=== PATIENT | male | born 1990 | race Caucasian/White ===

== ENCOUNTER 2018-05-09 03:11 | Emergency (ER) | payer BC ==
[2018-05-09 03:33] VITALS: BP 124/86; PULSE 86; TEMP 99.1; BMI 25.7
--- NOTE | 2018-05-09 03:41 | PDOC ---
History of Present Illness - General Chief Complaint: Injury Stated Complaint: FALL Time Seen by Provider: 05/09/18 03:18 History Source: Patient Exam Limitations: No Limitations - History of Present Illness Initial Comments: 05/09/18 03:48 28-year-old male with no medical history presents to the ER complaining of a frontal forehead/scalp laceration status post tripped and fell forward, striking his forehead against the wall. Patient states he had 2 beers this evening but denies dizziness, lightheadedness. Patient states he's wearing oversized flip-flops which caused him to trip and fall forward. Patient denies LOC, fever/chills, facial pains, neck pain/stiffness, back pains, chest pain, shortness of breath, abdominal pains, flank pains, urinary symptoms, bladder or bowel dysfunction, extremity numbness or tingling sensation. Bleeding controlled with direct pressure prior to his arrival. Patient states he feels fine. Procedure: 2.5 cm vertical midline laceration to scalp/into 2 mm frontal forehead Betadine prep 1% lidocaine 2 mL Normal saline copious irrigation Betadine reprep Aseptic drape (4) 5-0 Prolene simple interrupted bacitracin Past History - Past Medical History Allergies/Adverse Reactions: Allergies Allergy/AdvReac Type Severity Reaction Status Date / Time No Known Allergies Allergy Verified 10/28/12 20:14 Home Medications: Ambulatory Orders NK [No Known Home Medication] 05/09/18 COPD: No - Immunization History Td Vaccination: No TDAP Vaccination: No Immunization Up to Date: Yes - Suicide/Smoking/Psychosocial Hx Smoking Status: No Smoking History: Unknown if ever smoked Have you smoked in the past 12 months: No Number of Cigarettes Smoked Daily: 0 Information on smoking cessation initiated: No Hx Alcohol Use: Yes Drug/Substance Use Hx: No Review of Systems - Review of Systems Able to Perform ROS?: Yes Comments:: 05/09/18 03:46 CONSTITUTIONAL: Absent: fever, chills, diaphoresis, generalized weakness, malaise, loss of appetite HEENT: Absent: rhinorrhea, nasal congestion, throat pain, throat swelling, difficulty swallowing, mouth swelling, ear pain, eye pain, visual Changes CARDIOVASCULAR: Absent: chest pain, loss of consciousness, palpitations, irregular heart rate, peripheral edema RESPIRATORY: Absent: cough, shortness of breath, dyspnea with exertion, orthopnea, wheezing, stridor, hemoptysis GASTROINTESTINAL: Absent: abdominal pain, abdominal distension, nausea, vomiting, diarrhea, constipation, melena, hematochezia GENITOURINARY: Absent: dysuria, frequency, urgency, hesitancy, hematuria, flank pain, genital pain MUSCULOSKELETAL: Absent: myalgia, arthralgia, joint swelling SKIN: Absent: rash, itching, pallor HEMATOLOGIC/IMMUNOLOGIC: Absent: easy bleeding, easy bruising, lymphadenopathy, frequent infections ENDOCRINE: Absent: unexplained weight gain, unexplained weight loss, heat intolerance, cold intolerance NEUROLOGIC: Absent: headache, focal weakness or paresthesias, dizziness, unsteady gait, seizure, mental status changes, bladder or bowel incontinence PSYCHIATRIC: Absent: anxiety, depression, suicidal or homicidal ideation, hallucinations. Is the patient limited Romanian proficient: No *Physical Exam - Vital Signs Last Vital Signs Temp Pulse Resp BP Pulse Ox 99.1 F 86 17 124/86 99 05/09/18 03:30 05/09/18 03:30 05/09/18 03:30 05/09/18 03:30 05/09/18 03:30 05/09/18 03:46 GENERAL: Well developed, well nourished. Awake and alert. No acute distress. HEENT: Normocephalic, atraumatic. PERRLA, EOMI. No conjunctival pallor. Sclera are non- icteric. Moist mucous membranes. Oropharynx is clear. NECK: Supple. Full ROM. No JVD. Carotid pulses 2+ and symmetric, without bruits. No thyromegaly. No lymphadenopathy. CARDIOVASCULAR: Regular rate and rhythm. No murmurs, rubs, or gallops. Distal pulses are 2+ and symmetric. PULMONARY: No evidence of respiratory distress. Lungs clear to auscultation bilaterally. No wheezing, rales or rhonchi. ABDOMINAL: Soft. Non-tender. Non-distended. No rebound or guarding. No organomegaly. Normoactive bowel sounds. MUSCULOSKELETAL Normal range of motion at all joints. No bony deformities or tenderness. No CVA tenderness. EXTREMITIES: No cyanosis. No clubbing. No edema. No calf tenderness. SKIN: Warm and dry. Normal capillary refill. No rashes. No jaundice. NEUROLOGICAL: 2.5 cm verti mid frontal forehead /2mm pass scalp line partieal thickness laceration Alert, awake, appropriate. Cranial nerves 2-12 intact. No deficits to light touch and temperature in face, upper extremities and lower extremities. No motor deficits in the in face, upper extremities and lower extremities. Normoreflexic in the upper and lower extremities. Normal speech. Toes are down- going bilaterally. Gait is normal without ataxia. PSYCHIATRIC: Cooperative. Good eye contact. Appropriate mood and affect. ED Treatment Course - RADIOLOGY Radiograph Interpretation: 05/09/18 03:48 CT head/c spine w/o contrast: neg wnl *DC/Admit/Observation/Transfer Diagnosis at time of Disposition: Closed head injury Qualifiers: Encounter type: initial encounter Qualified Code(s): S09.90XA - Unspecified injury of head, initial encounter Laceration of scalp Qualifiers: Encounter type: initial encounter Qualified Code(s): S01.01XA - Laceration without foreign body of scalp, initial encounter - Discharge Dispostion Condition at time of disposition: Stable Decision to Admit order: No - Referrals Referrals: Homer Jarvis MD [Primary Care Provider] - - Patient Instructions Printed Discharge Instructions: DI for Laceration Repair of the Scalp, DI for Closed Head Injury Additional Instructions: Keep the incision clean and dry for 24 hours. After 24 hours, you may allow the soap and water to rinse off your incision. Avoid direct pressure of the water to the incision. Pat the incision dry with a clean clothe. Apply a small amount of bacitracin onto the incision. Cover the incision loosely with a bandaid. Take tylenol/motrin as needed for pain. Follow up with your physician or the ER in 48 hours for a wound check. Return to the ER if you notice red streaks, increase redness/swelling/severe pain to the incision. Suture removal in 9 days. - Post Discharge Activity
== END 2018-05-09 05:04 | disposition home or self-care (01) ==
LOC: JER 03:11
PROC: 0HQ0XZZ Repair Scalp Skin, External Approach (ICD-10-PCS; principal; 2018-05-09)
DX: S01.01XA Laceration without foreign body of scalp, initial encounter (principal); W01.198A Fall on same level from slipping, tripping and stumbling with subsequent striking against other object, initial encounter; Y93.89 Activity, other specified; Y92.89 Other specified places as the place of occurrence of the external cause; Y99.8 Other external cause status
CPT/HCPCS: 70450-TC; 72125-TC; 99283-25

== ENCOUNTER 2020-05-14 08:26 | Emergency (ER) | payer OTHER ==
[2020-05-14 08:39] VITALS: BP 141/88; PULSE 79; BMI 26.6
[2020-05-14 08:40] VITALS: TEMP 97.9
[2020-05-14] MEDS ORDERED: MAG HYDROX/AL HYDROX/SIMETH 30 ML UNIT-DOSE CUP PO ONE (08:51)
[2020-05-14] MEDS ORDERED: MAG HYDROX/AL HYDROX/SIMETH 30 ML UNIT-DOSE CUP ONE (09:24)
[2020-05-14 10:06] LABS: BASO % 0.4 % (0-2.0); EOS % 1.9 % (0-4.5); HEMATOCRIT 47.1 % (35.4-49); HEMOGLOBIN 15.9 GM/dL (11.7-16.9); LYMPH % 25.7 % (8-40); MCH 28.7 pg (25.7-33.7); MCHC 33.8 g/dl (32.0-35.9); MEAN PLT VOLUME 8.5 fl (7.5-11.1); MONO % 7.1 % (3.8-10.2); NEUT % 64.9 % (42.8-82.8); PLATELET COUNT 186 K/MM3 (134-434); RBC 5.55 M/mm3 (4.00-5.60); RDW 12.4 % (11.9-15.9); WHITE BLOOD COUNT 4.4 K/mm3 (4.0-10.0)
[2020-05-14 10:36] LABS: CHLORIDE 104 mmol/L (98-107); POTASSIUM 3.8 mmol/L (3.5-5.1); SODIUM 139 mmol/L (136-145)
[2020-05-14 10:39] LABS: ANION GAP 5 MMOL/L (8-16); BLOOD UREA NITROGEN 9.1 mg/dL (7-18); CO2 30 mmol/L (21-32); GLUCOSE,RANDOM 102 mg/dL (74-106)
[2020-05-14 10:42] LABS: CREATININE 0.9 mg/dL (0.55-1.3); SGOT/AST 16 U/L (15-37); SGPT/ALT 39 U/L (13-61)
[2020-05-14 10:44] LABS: BILIRUBIN,TOTAL 0.5 mg/dL (0.2-1)
[2020-05-14 10:45] LABS: ALK PHOS 84 U/L (45-117)
[2020-05-14] MEDS ORDERED: FAMOTIDINE 20 MG TABLET PO ONE (11:08)
[2020-05-14] MEDS ORDERED: FAMOTIDINE 20 MG TABLET ONE (11:12)
== END 2020-05-14 11:15 | disposition home or self-care (01) ==
LOC: JER 08:26
DX: R07.9 Chest pain, unspecified (principal)
CPT/HCPCS: 36415; 71046-TC-FY; 80053; 82550; 84484; 85025; 93005; 93010; 99285-25

== ENCOUNTER 2020-11-30 11:46 | Emergency (ER) | payer OTHER ==
[2020-11-30 12:32] VITALS: BP 125/85; PULSE 76; TEMP 98.6; BMI 24.2
[2020-11-30] MEDS ORDERED: LIDOCAINE 5% TOPICAL PATCH TP ONE (13:02)
[2020-11-30] MEDS ORDERED: METHOCARBAMOL 500 MG TABLET PO ONE (13:02)
[2020-11-30] MEDS ORDERED: KETOROLAC TROMETHAMINE 60 MG/2 ML VIAL IM ONE (13:02)
[2020-11-30] MEDS ORDERED: LIDOCAINE 5% TOPICAL PATCH ONE (13:08)
[2020-11-30] MEDS ORDERED: KETOROLAC TROMETHAMINE 30 MG/1 ML VIAL ONE (13:09)
[2020-11-30] MEDS ORDERED: METHOCARBAMOL 500 MG TABLET ONE (13:09)
== END 2020-11-30 13:18 | disposition home or self-care (01) ==
LOC: JERFT 11:46 → JER 11:46 → JERFT 13:18
PROC: 3E0233Z Introduction of Anti-inflammatory into Muscle, Percutaneous Approach (ICD-10-PCS; principal; 2020-11-30)
DX: M54.5 Low back pain (principal)
CPT/HCPCS: 99284-25

== ENCOUNTER 2021-03-13 22:16 | Emergency (ER) | payer OTHER ==
[2021-03-13 22:23] VITALS: BP 119/70; PULSE 112; TEMP 98.6; BMI 25.8
[2021-03-13] MEDS ORDERED: IBUPROFEN 600 MG TABLET (FP) PO ONE ×2 (22:38→22:39)
== END 2021-03-13 23:21 | disposition home or self-care (01) ==
LOC: JERFT 22:16 → JER 22:16 → JERFT 23:21
DX: S93.402A Sprain of unspecified ligament of left ankle, initial encounter (principal); W18.40XA Slipping, tripping and stumbling without falling, unspecified, initial encounter; X50.0XXA Overexertion from strenuous movement or load, initial encounter; Y93.64 Activity, baseball
CPT/HCPCS: 73610-TC-LT-FY; 73630-TC-LT; 99283-25

== ENCOUNTER 2022-02-27 13:19 | Emergency (ER) | payer OTHER ==
[2022-02-27 13:22] VITALS: BP 124/79; PULSE 77; RESP 18; TEMP 97.9; BMI 25.8
[2022-02-27 14:01] LABS: URINE APPEARANCE CLEAR; URINE BILIRUBIN NEGATIVE (NEGATIVE); URINE COLOR YELLOW; URINE GLUCOSE (UA) NEGATIVE (NEGATIVE); URINE KETONE NEGATIVE (NEGATIVE); URINE LEUK ESTERASE NEGATIVE (NEGATIVE); URINE NITRITE NEGATIVE (NEGATIVE); URINE PROTEIN NEGATIVE (NEGATIVE); URINE UROBILINOGEN 0.2 mg/dL (0.2-1.0)
== END 2022-02-27 17:47 | disposition home or self-care (01) ==
LOC: JERFT 13:19
DX: I86.1 Scrotal varices (principal)
CPT/HCPCS: 76870-TC; 81003; 87086; 99284-25

== ENCOUNTER 2022-06-09 01:41 | Emergency (ER) | payer OTHER ==
[2022-06-09 01:48] VITALS: BP 133/79; PULSE 104; RESP 20; TEMP 98.9; BMI 25.8
== END 2022-06-09 03:04 | disposition home or self-care (01) ==
LOC: JER 01:41
DX: S93.402A Sprain of unspecified ligament of left ankle, initial encounter (principal); S93.602A Unspecified sprain of left foot, initial encounter; W01.0XXA Fall on same level from slipping, tripping and stumbling without subsequent striking against object, initial encounter; X50.0XXA Overexertion from strenuous movement or load, initial encounter
CPT/HCPCS: 73610-TC-LT-FY; 73630-TC-LT; 99283-25

== ENCOUNTER 2022-11-26 19:10 | Emergency (ER) | payer OTHER ==
[2022-11-26 19:21] VITALS: BP 137/93; PULSE 76; RESP 18; TEMP 98.5; BMI 25.8
[2022-11-26] MEDS ORDERED: NAPROXEN 500 MG TABLET PO ONE (19:43)
[2022-11-26] MEDS ORDERED: NAPROXEN 500 MG TABLET ONE (19:43)
[2022-11-26 20:00] LABS: BASO % 0.5 % (0-2.0); HEMATOCRIT 45.5 % (35.4-49); LYMPH % 21.7 % (8-40); MCH 28.6 pg (25.7-33.7); MCHC 35.1 g/dl (32.0-35.9); MEAN CELL VOLUME 81.6 fl (80-96); MONO % 6.6 % (3.8-10.2); NEUT % 67.2 % (42.8-82.8); PLATELET COUNT 198 10^3/uL (134-434); RBC 5.58 M/mm3 (4.00-5.60); WHITE BLOOD COUNT 7.1 K/mm3 (4.0-10.0)
[2022-11-26 20:19] LABS: POTASSIUM 3.8 mmol/L (3.5-5.1)
[2022-11-26 20:21] LABS: ALBUMIN 4.1 g/dl (3.4-5.0); CALCIUM 8.7 mg/dL (8.5-10.1)
[2022-11-26 20:22] LABS: BLOOD UREA NITROGEN 13.6 mg/dL (7-18); MAGNESIUM 2.2 mg/dL (1.8-2.4)
[2022-11-26 20:24] LABS: CREATININE 0.9 mg/dL (0.55-1.3)
[2022-11-26 20:26] LABS: BILIRUBIN,TOTAL 0.5 mg/dL (0.2-1); TOT PROT 7.2 g/dl (6.4-8.2)
== END 2022-11-26 20:41 | disposition home or self-care (01) ==
LOC: JERFT 19:10
DX: R07.89 Other chest pain (principal); M94.0 Chondrocostal junction syndrome [Tietze]; X50.0XXA Overexertion from strenuous movement or load, initial encounter
CPT/HCPCS: 36415; 71046-TC-FY; 80053; 83735; 85025; 93005; 93010; 99285-25

== ENCOUNTER 2023-06-03 06:56 | Emergency (ER) | payer SELFPAY ==
[2023-06-03 07:06] VITALS: BP 126/88; PULSE 91; RESP 18; TEMP 98.5; BMI 25.8
[2023-06-03] MEDS ORDERED: ONDANSETRON 4 MG/2 ML VIAL IVPUSH ONE (07:22)
[2023-06-03] MEDS ORDERED: SODIUM CHLORIDE 0.9% 500 ML INFUS.BAG IV ONE (07:22)
[2023-06-03] MEDS ORDERED: KETOROLAC TROMETHAMINE 30 MG/1 ML VIAL IVPUSH ONE (07:22)
[2023-06-03] MEDS ORDERED: ONDANSETRON 4 MG/2 ML VIAL ONE (07:36)
[2023-06-03] MEDS ORDERED: KETOROLAC TROMETHAMINE 30 MG/1 ML VIAL ONE (07:36)
[2023-06-03 07:58] LABS: BASO % 0.2 % (0-2.0); EOS % 0.8 % (0-4.5); HEMATOCRIT 48.4 % (35.4-49); HEMOGLOBIN 16.9 GM/dL (11.7-16.9); LYMPH % 6.2 % (8-40); MCH 29.3 pg (25.7-33.7); MCHC 34.9 g/dl (32.0-35.9); MEAN CELL VOLUME 83.9 fl (80-96); MEAN PLT VOLUME 8.1 fl (7.5-11.1); NEUT % 87.8 % (42.8-82.8); PLATELET COUNT 186 10^3/uL (134-434); RBC 5.76 M/mm3 (4.00-5.60); RDW 12.8 % (11.9-15.9); WHITE BLOOD COUNT 6.7 K/mm3 (4.0-10.0)
[2023-06-03 08:05] LABS: POTASSIUM 3.9 mmol/L (3.5-5.1)
[2023-06-03 08:07] LABS: CALCIUM 8.9 mg/dL (8.5-10.1)
[2023-06-03 08:08] LABS: BLOOD UREA NITROGEN 10.5 mg/dL (7-18)
[2023-06-03 08:12] LABS: BILIRUBIN,TOTAL 1.2 mg/dL (0.2-1); TOT PROT 7.4 g/dl (6.4-8.2)
[2023-06-03 08:17] LABS: PH,URINE 5.5 (5.0-8.0); URINE APPEARANCE CLEAR; URINE BILIRUBIN NEGATIVE (NEGATIVE); URINE COLOR DK YELLOW; URINE GLUCOSE (UA) NEGATIVE (NEGATIVE); URINE KETONE 3+ (NEGATIVE); URINE LEUK ESTERASE NEGATIVE (NEGATIVE); URINE NITRITE NEGATIVE (NEGATIVE); URINE PROTEIN TRACE (NEGATIVE)
[2023-06-03] MEDS ORDERED: DEXAMETHASONE SOD PHOSPHATE 10 MG/1 ML VIAL IVPUSH ONE (08:46)
[2023-06-03] MEDS ORDERED: FAMOTIDINE 20 MG/50 ML IVPB 20 MG/50 ML MG IVPB ONE (08:47)
[2023-06-03] MEDS ORDERED: DEXAMETHASONE SOD PHOSPHATE 10 MG/1 ML VIAL ONE (08:48)
[2023-06-03] MEDS ORDERED: FAMOTIDINE 10 MG/ML VIAL IVPB ONE (08:49)
[2023-06-03] MEDS ORDERED: CEFTRIAXONE 1 GM in DEXTROSE 5%-WATER - 100 ML IVPB ONE (09:58)
[2023-06-03] MEDS ORDERED: metroNIDAZOLE 500 MG TABLET PO ONE (10:43)
[2023-06-03] MEDS ORDERED: metroNIDAZOLE 250 MG TABLET ONE (10:49)
[2023-06-03] MEDS ORDERED: CEFTRIAXONE 1 GM/50 ML BAG ONE (10:56)
== END 2023-06-03 11:10 | disposition home or self-care (01) ==
LOC: JER 06:56
PROC: 3E03329 Introduction of Other Anti-infective into Peripheral Vein, Percutaneous Approach (ICD-10-PCS; principal; 2023-06-03)
PROC: 3E033GC Introduction of Other Therapeutic Substance into Peripheral Vein, Percutaneous Approach (ICD-10-PCS; 2023-06-03)
PROC: 3E033GC Introduction of Other Therapeutic Substance into Peripheral Vein, Percutaneous Approach (ICD-10-PCS; 2023-06-03)
PROC: 3E033GC Introduction of Other Therapeutic Substance into Peripheral Vein, Percutaneous Approach (ICD-10-PCS; 2023-06-03)
PROC: 3E0333Z Introduction of Anti-inflammatory into Peripheral Vein, Percutaneous Approach (ICD-10-PCS; 2023-06-03)
DX: K62.89 Other specified diseases of anus and rectum (principal); R10.33 Periumbilical pain; R19.7 Diarrhea, unspecified; R11.2 Nausea with vomiting, unspecified
CPT/HCPCS: 36415; 74177-TC; 80053; 81003; 83690; 85025; 99285-25; J1100; Q9967

== ENCOUNTER 2023-06-26 09:46 | Emergency (ER) | payer BC ==
[2023-06-26 09:52] VITALS: BP 143/90; PULSE 84; RESP 18; TEMP 98; BMI 25.8
== END 2023-06-26 10:38 | disposition home or self-care (01) ==
LOC: JERFT 09:46
DX: B34.9 Viral infection, unspecified (principal); H10.9 Unspecified conjunctivitis; Z20.822 Contact with and (suspected) exposure to COVID-19
CPT/HCPCS: 0241U-QW; 99283-25

== ENCOUNTER 2023-11-16 14:15 | Emergency (ER) | payer BC ==
[2023-11-16] MEDS ORDERED: PENICILLIN G BENZATHINE 1,200,000 UNIT/2 ML PFS IM ONE (14:33)
[2023-11-16 14:34] VITALS: BP 118/85; PULSE 78; RESP 19; TEMP 97.9; BMI 26.6
[2023-11-16] MEDS: PENICILLIN G BENZATHINE 1,200,000 UNIT/2 ML PFS IM ONE (14:40)
== END 2023-11-16 15:15 | disposition home or self-care (01) ==
LOC: JERFT 14:15
DX: J02.0 Streptococcal pharyngitis (principal)
CPT/HCPCS: 99284-25